=== PATIENT | female | born 1935 | race Caucasian/White ===

== ENCOUNTER 2020-05-10 13:18 | Emergency (ER) | payer MEDICARE, OTHER ==
[~2020-05-10] VITALS: Ht 152.4 cm; Wt 52.3 kg
[~2020-05-10 13:18] MED LIST: CYCL-1 PO; DICL50TA8 PO; HYDR-4353 PO; MULT-1085 PO; OMEP20TA5 PO; SERT25TA PO; TRAZ-256 PO
[2020-05-10 13:31] VITALS: BP 144/67
== END 2020-05-10 18:28 | disposition left against medical advice (07) ==
LOC: ER 13:19
DX: M54.9 Dorsalgia, unspecified (principal); Z53.21 Procedure and treatment not carried out due to patient leaving prior to being seen by health care provider

== ENCOUNTER 2021-01-11 08:27 | Inpatient (IN) | payer MEDICARE, OTHER ==
[~2021-01-11] VITALS: Ht 154.9 cm; Wt 53.7 kg
[2021-01-11] VITALS (13 sets, daily range): BP systolic 126–157; BP diastolic 58–90
[2021-01-11] MEDS ORDERED: LORazepam 0.5 MG tablet PO PRN (09:20)
[2021-01-11] MEDS ORDERED: diphenhydrAMINE 25mg capsule PO PRN (09:20)
[2021-01-11] MEDS ORDERED: nitroGLYCERIN 0.4mg SUBLingual tab SL PRN (09:20)
[2021-01-11] MEDS: normal saline 1,000 ML IV SCH ×2 (09:20→19:20)
[2021-01-11 10:16] LABS: BASOPHILS % (AUTO) 0.5 % (0-1); EOSINOPHILS # (AUTO) 0.2 X10'3 (0-0.9); EOSINOPHILS % (AUTO) 4.5 % (0-6); HEMATOCRIT 33.2 % (35.0-45.0); HEMOGLOBIN 11.3 g/dl (12.0-16.0); LYMPHOCYTES # (AUTO) 0.8 X10'3 (1.1-4.8); LYMPHOCYTES % (AUTO) 22.2 % (21-51); MEAN CORPUSCULAR HEMOGLOBIN 30.5 PG (27.0-31.0); MEAN CORPUSCULAR HGB CONC 33.9 g/dL (33.0-36.5); MEAN CORPUSCULAR VOLUME 90.1 FL (78-98); MEAN PLATELET VOLUME 6.6 FL (7.4-10.4); MONOCYTES # (AUTO) 0.4 X10'3 (0-0.9); MONOCYTES % (AUTO) 10.5 % (2-12); NEUTROPHILS # (AUTO) 2.4 X10'3 (1.8-7.7); NEUTROPHILS % (AUTO) 62.3 % (42-75); PLATELET COUNT 292 X10'3 (140-440); RED BLOOD COUNT 3.69 X10'6 (4.20-5.60); RED CELL DISTRIBUTION WIDTH 13.8 % (11.5-14.5); WHITE BLOOD COUNT 3.8 X10'3 (4.5-11.0)
[2021-01-11 10:25] LABS: ALBUMIN 3.5 G/DL (3.4-5.0); ANION GAP 6 (8-16); BLOOD UREA NITROGEN 14 MG/DL (7-18); BUN/CREATININE RATIO 15.9 (6.6-38.0); CALCIUM 8.9 MG/DL (8.5-10.1); CHLORIDE 108 MMOL/L (99-107); CREATININE 0.88 MG/DL (0.40-0.90); GLUCOSE 97 MG/DL (70-104); POTASSIUM 4.1 MMOL/L (3.5-5.1); SODIUM 142 MMOL/L (135-145); TOTAL CARBON DIOXIDE 28.3 MMOL/L (24-32); eGFR 61 ML/MIN
[2021-01-11 10:28] LABS: PARTIAL THROMBOPLASTIN TIME 27 SECONDS (22-32)
[2021-01-11] MEDS ORDERED: BUPR2TAB11 SL (11:55)
[2021-01-11] MEDS ORDERED: GLUC-95 PO (11:55)
[2021-01-11] MEDS ORDERED: CYAN250010 PO (11:55)
[2021-01-11] MEDS ORDERED: CALC-336 PO (11:55)
[2021-01-11] MEDS ORDERED: GABA300C PO (11:55)
[2021-01-11] MEDS ORDERED: FERR236T3 PO (11:55)
[2021-01-11] MEDS ORDERED: ASCO-139 PO (11:55)
[2021-01-11] MEDS ORDERED: CHOL100040 PO (11:55)
[2021-01-11] MEDS ORDERED: midazolam 1 mg/ML 2ml injection ONE ×2 (13:13→14:08)
[2021-01-11] MEDS ORDERED: fentaNYL/PF 50MCG/1 ML 2ML syringe ONE ×2 (13:13→14:08)
[2021-01-11] MEDS ORDERED: LIDOcaine 1% (10mg/ml)w/preservative injection 20ml MDV ONE (13:13)
[2021-01-11] MEDS ORDERED: iohexol 350MG/ML 100ml bottle IV ONE (13:13)
[2021-01-11] MEDS ORDERED: iohexol 350 MG/ML 50ML vial IV ONE ×2 (13:13→14:29)
[2021-01-11] MEDS ORDERED: HYDROcodone/acetaminophen 5mg/325mg tablet PO PRN ×2 (15:25→16:10)
[2021-01-11] MEDS ORDERED: HYDROcodone/acetaminophen 10/325mg tab PO PRN (15:25)
[2021-01-11] MEDS ORDERED: ondansetron/PF 4mg/2ml inj IV PRN ×2 (15:25→16:10)
[2021-01-11] MEDS ORDERED: OXAZEpam 15mg capsule PO PRN (15:25)
[2021-01-11] MEDS ORDERED: proCHLORperazine 10 MG/2 ml inj IV PRN (15:25)
[2021-01-11] MEDS ORDERED: magnesium hydroxide 30ml (MOM) UD suspension PO PRN (16:10)
[2021-01-11] MEDS ORDERED: magnesium 2GM in 50ml NS 50 ML IV PRN (16:10)
[2021-01-11] MEDS ORDERED: magnesium Cl slow-release 64mg tablet PO PRN (16:10)
[2021-01-11] MEDS ORDERED: potassium Cl 40MEQ/1/2NS 520ml 520 ML IV PRN ×2 (16:10)
[2021-01-11] MEDS ORDERED: magnesium 4gm in 100ml NS 100 ML IV PRN (16:10)
[2021-01-11] MEDS ORDERED: morphine 2 MG/ML inj. syringe IV PRN ×2 (16:10)
[2021-01-11] MEDS ORDERED: mag hydrox/Alum hydrox/simeth 30ml oral suspension PO PRN (16:10)
[2021-01-11] MEDS ORDERED: acetaminophen 325mg tablet PO PRN ×2 (16:10)
[2021-01-11] MEDS ORDERED: potassium Cl 20 mEq SR tablet PO PRN ×2 (16:10)
[2021-01-11] MEDS ORDERED: cyclobenzaprine 10mg tablet PO PRN (16:20)
--- NOTE | 2021-01-11 16:35 | NUR ---
Problems reprioritized. Patient report given, questions answered & plan of care reviewed with ELIEL Hennessy, pt will be going to room #0689F.
--- NOTE | 2021-01-11 17:00 | NUR ---
pt is in room #3014B, VSS, pt is in stable condition and in no distress at this time, pt's RNPierre at pt's bedside.
[2021-01-11] MEDS: HYDROcodone/acetaminophen 10/325mg tab PO PRN (18:15)
[2021-01-11] MEDS: docusate sod 100mg capsule PO SCH (19:29)
[2021-01-11] MEDS: pantoprazole 40mg Tablet.DR PO SCH (19:29)
[2021-01-11] MEDS: heparin, porcine 5000 units/ml vial SQ SCH (19:30)
[2021-01-11] MEDS: normal saline 1000ml 1,000 ML IV SCH (19:30)
[2021-01-11] MEDS: HYDROmorphone inj. 0.5 MG/0.5 ML DISP.SYRIN IV PRN (19:30)
[2021-01-11] MEDS: K and/or MAG REPLACEMENT MC SCH (19:46)
[2021-01-11] MEDS ORDERED: temazepam 15mg capsule PO PRN (21:00)
[2021-01-11] MEDS: traZODone 50mg tablet PO SCH (22:25)
[2021-01-12] VITALS (14 sets, daily range): BP systolic 120–151; BP diastolic 61–81
[2021-01-12] MEDS: normal saline 1,000 ML IV SCH ×2 (05:20→14:13)
[2021-01-12] MEDS: HYDROmorphone inj. 0.5 MG/0.5 ML DISP.SYRIN IV PRN ×2 (05:27→10:37)
[2021-01-12 06:14] LABS: BASOPHILS % (AUTO) 0.5 % (0-1); EOSINOPHILS # (AUTO) 0.2 X10'3 (0-0.9); EOSINOPHILS % (AUTO) 4.5 % (0-6); HEMATOCRIT 30.3 % (35.0-45.0); HEMOGLOBIN 10.3 g/dl (12.0-16.0); LYMPHOCYTES # (AUTO) 1.2 X10'3 (1.1-4.8); LYMPHOCYTES % (AUTO) 24.8 % (21-51); MEAN CORPUSCULAR HEMOGLOBIN 30.9 PG (27.0-31.0); MEAN CORPUSCULAR VOLUME 90.9 FL (78-98); MEAN PLATELET VOLUME 7.2 FL (7.4-10.4); MONOCYTES # (AUTO) 0.4 X10'3 (0-0.9); MONOCYTES % (AUTO) 8.7 % (2-12); NEUTROPHILS # (AUTO) 3.1 X10'3 (1.8-7.7); NEUTROPHILS % (AUTO) 61.5 % (42-75); PLATELET COUNT 249 X10'3 (140-440); RED BLOOD COUNT 3.33 X10'6 (4.20-5.60); RED CELL DISTRIBUTION WIDTH 14.1 % (11.5-14.5)
--- NOTE | 2021-01-12 06:22 | NUR ---
Problems reprioritized. Patient report given, questions answered & plan of care reviewed with ELIEL Hammer.
[2021-01-12] MEDS: normal saline 1000ml 1,000 ML IV SCH ×2 (06:28→20:46)
[2021-01-12 06:32] LABS: ALANINE AMINOTRANSFERASE 13 U/L (12-78); ALBUMIN 2.8 G/DL (3.4-5.0); ALBUMIN/GLOBULIN RATIO 0.9 (1.1-1.5); ALKALINE PHOSPHATASE 67 IU/L (46-116); ANION GAP 12 (8-16); ASPARTATE AMINO TRANSFERASE 16 U/L (10-37); BILIRUBIN,TOTAL 0.2 MG/DL (0.1-1.0); BLOOD UREA NITROGEN 14 MG/DL (7-18); BUN/CREATININE RATIO 16.3 (6.6-38.0); CALCIUM 8.2 MG/DL (8.5-10.1); CHLORIDE 108 MMOL/L (99-107); CREATININE 0.86 MG/DL (0.40-0.90); GLUCOSE 94 MG/DL (70-104); MAGNESIUM 2.2 MG/DL (1.5-2.4); POTASSIUM 3.8 MMOL/L (3.5-5.1); SODIUM 145 MMOL/L (135-145); TOTAL CARBON DIOXIDE 24.8 MMOL/L (24-32); eGFR 63 ML/MIN
[2021-01-12] MEDS: gabapentin 300mg capsule PO SCH (07:35)
[2021-01-12] MEDS: sertraline 50mg tablet PO SCH (07:36)
[2021-01-12] MEDS: pantoprazole 40mg Tablet.DR PO SCH ×2 (07:36→20:27)
[2021-01-12] MEDS: heparin, porcine 5000 units/ml vial SQ SCH ×2 (07:40→20:27)
[2021-01-12] MEDS: docusate sod 100mg capsule PO SCH ×2 (07:40→20:28)
[2021-01-12] MEDS: K and/or MAG REPLACEMENT MC SCH ×2 (08:00→20:00)
[2021-01-12] MEDS ORDERED: midazolam 1 mg/ML 2ml injection ONE ×2 (08:41→09:46)
[2021-01-12] MEDS ORDERED: proCHLORperazine 10 MG/2 ml inj ONE (08:41)
[2021-01-12] MEDS ORDERED: fentaNYL/PF 50MCG/1 ML 2ML syringe ONE ×2 (08:41→09:39)
[2021-01-12] MEDS ORDERED: vancomycin 1,000mg inj ONE (08:42)
[2021-01-12] MEDS ORDERED: LIDOcaine 1% w/EPI 1:100,000 30ml vial (MDV) ONE (08:42)
[2021-01-12] MEDS ORDERED: ceFAZolin/D5W- 1GM premix 50 ML IV ONE (09:00)
[2021-01-12] MEDS ORDERED: ceFAZolin 1000mg inj IR ONE (09:00)
[2021-01-12] MEDS: HYDROcodone/acetaminophen 10/325mg tab PO PRN (17:16)
[2021-01-12] MEDS: traZODone 50mg tablet PO SCH (20:27)
[2021-01-13] MEDS: normal saline 1,000 ML IV SCH (00:26)
[2021-01-13 02:00] VITALS: BP 161/84
--- NOTE | 2021-01-13 06:27 | NUR ---
Problems reprioritized. Patient report given, questions answered & plan of care reviewed with Davis JULIAN .
[2021-01-13 06:38] LABS: BASOPHILS % (AUTO) 0.2 % (0-1); EOSINOPHILS # (AUTO) 0.1 X10'3 (0-0.9); EOSINOPHILS % (AUTO) 0.9 % (0-6); HEMOGLOBIN 10.8 g/dl (12.0-16.0); LYMPHOCYTES # (AUTO) 0.8 X10'3 (1.1-4.8); LYMPHOCYTES % (AUTO) 12.1 % (21-51); MEAN CORPUSCULAR HEMOGLOBIN 30.5 PG (27.0-31.0); MEAN CORPUSCULAR HGB CONC 33.7 g/dL (33.0-36.5); MEAN CORPUSCULAR VOLUME 90.2 FL (78-98); MONOCYTES # (AUTO) 0.5 X10'3 (0-0.9); MONOCYTES % (AUTO) 7.6 % (2-12); NEUTROPHILS # (AUTO) 5.4 X10'3 (1.8-7.7); NEUTROPHILS % (AUTO) 79.2 % (42-75); PLATELET COUNT 248 X10'3 (140-440); RED BLOOD COUNT 3.55 X10'6 (4.20-5.60); RED CELL DISTRIBUTION WIDTH 13.8 % (11.5-14.5); WHITE BLOOD COUNT 6.8 X10'3 (4.5-11.0)
[2021-01-13 06:52] LABS: ALANINE AMINOTRANSFERASE 20 U/L (12-78); ALKALINE PHOSPHATASE 85 IU/L (46-116); ANION GAP 5 (8-16); ASPARTATE AMINO TRANSFERASE 21 U/L (10-37); BILIRUBIN,TOTAL 0.3 MG/DL (0.1-1.0); BLOOD UREA NITROGEN 8 MG/DL (7-18); BUN/CREATININE RATIO 11.4 (6.6-38.0); CALCIUM 8.4 MG/DL (8.5-10.1); CHLORIDE 108 MMOL/L (99-107); GLUCOSE 113 MG/DL (70-104); POTASSIUM 3.4 MMOL/L (3.5-5.1); SODIUM 138 MMOL/L (135-145); TOTAL CARBON DIOXIDE 24.7 MMOL/L (24-32); TOTAL PROTEIN 6.1 G/DL (6.4-8.2); eGFR 80 ML/MIN
[2021-01-13 07:00] VITALS: BP 145/87
[2021-01-13] MEDS ORDERED: ceFAZolin/D5W- 1GM premix 50 ML IV SCH (08:00)
[2021-01-13] MEDS: K and/or MAG REPLACEMENT MC SCH (08:00)
[2021-01-13] MEDS: docusate sod 100mg capsule PO SCH (09:11)
[2021-01-13] MEDS: pantoprazole 40mg Tablet.DR PO SCH (09:12)
[2021-01-13] MEDS: sertraline 50mg tablet PO SCH (09:12)
[2021-01-13] MEDS: gabapentin 300mg capsule PO SCH (09:12)
[2021-01-13] MEDS: heparin, porcine 5000 units/ml vial SQ SCH (09:13)
[2021-01-13] MEDS: HYDROcodone/acetaminophen 10/325mg tab PO PRN (11:38)
== END 2021-01-13 12:41 | disposition home or self-care (01) | DRG 243 ==
LOC: SSTAY O 08:27 → PCU 3S 15:00 → UNDOADMIN 15:00 → PCU 3S 16:10
PROVIDERS: ADMIT Internal Medicine Cardiovascular Disease; ATTEND Internal Medicine Cardiovascular Disease
PROC: 4A023N7 Measurement of Cardiac Sampling and Pressure, Left Heart, Percutaneous Approach (ICD-10-PCS; 2021-01-11)
PROC: B2111ZZ Fluoroscopy of Multiple Coronary Arteries using Low Osmolar Contrast (ICD-10-PCS; 2021-01-11)
PROC: B2151ZZ Fluoroscopy of Left Heart using Low Osmolar Contrast (ICD-10-PCS; 2021-01-11)
PROC: B3101ZZ Fluoroscopy of Thoracic Aorta using Low Osmolar Contrast (ICD-10-PCS; 2021-01-11)
PROC: 0JH606Z Insertion of Pacemaker, Dual Chamber into Chest Subcutaneous Tissue and Fascia, Open Approach (ICD-10-PCS; principal; 2021-01-12)
PROC: 02HK3JZ Insertion of Pacemaker Lead into Right Ventricle, Percutaneous Approach (ICD-10-PCS; 2021-01-12)
PROC: 02H63JZ Insertion of Pacemaker Lead into Right Atrium, Percutaneous Approach (ICD-10-PCS; 2021-01-12)
DX: I49.5 Sick sinus syndrome (principal); I44.2 Atrioventricular block, complete; G89.4 Chronic pain syndrome; M25.551 Pain in right hip; R94.39 Abnormal result of other cardiovascular function study; I20.9 Angina pectoris, unspecified; Z66 Do not resuscitate; F32.A Depression, unspecified; G62.9 Polyneuropathy, unspecified; J44.9 Chronic obstructive pulmonary disease, unspecified; Z89.512 Acquired absence of left leg below knee; Z80.0 Family history of malignant neoplasm of digestive organs; Z79.899 Other long term (current) drug therapy; I95.9 Hypotension, unspecified; S80.912A Unspecified superficial injury of left knee, initial encounter; X58.XXXA Exposure to other specified factors, initial encounter; Y93.89 Activity, other specified; Y92.89 Other specified places as the place of occurrence of the external cause; Y99.8 Other external cause status
CPT/HCPCS: 33208; 33210; 36415; 71045; 71046; 80048; 80053; 83605; 83735; 85025; 85610; 85730; 87040; 93005; 93458; 93567; 97116; 97161; 99152; 99153; A4565; A4620; A6258; A6449; C1760; C1769; C1785; C1898; G0378; J0690; J0780; J1170; J1644; J2001; J2250; J3010; J3370; J7030; Q9967

== ENCOUNTER 2021-03-19 08:51 | Day surgery (SDC) | payer MEDICARE, OTHER ==
[~2021-03-19] VITALS: Ht 152.4 cm; Wt 53.7 kg
[~2021-03-19 08:51] MED LIST changes: +ASCO-139 PO; +BUPR2TAB11 SL; +CALC-336 PO; +CHOL100040 PO; +CYAN250010 PO; -DICL50TA8 PO; +FERR236T3 PO; +GABA300C PO; +GLUC-95 PO
[2021-03-19] MEDS ORDERED: normal saline 1000ml 1,000 ML IV SCH (09:15)
[2021-03-19 10:17] LABS: BASOPHILS % (AUTO) 0.7 % (0-1); EOSINOPHILS # (AUTO) 0.2 X10'3 (0-0.9); EOSINOPHILS % (AUTO) 3.8 % (0-6); HEMATOCRIT 33.5 % (35.0-45.0); HEMOGLOBIN 11.3 g/dl (12.0-16.0); LYMPHOCYTES % (AUTO) 24.5 % (21-51); MEAN CORPUSCULAR HGB CONC 33.7 g/dL (33.0-36.5); MEAN PLATELET VOLUME 7.1 FL (7.4-10.4); MONOCYTES # (AUTO) 0.4 X10'3 (0-0.9); MONOCYTES % (AUTO) 9.5 % (2-12); NEUTROPHILS # (AUTO) 2.5 X10'3 (1.8-7.7); NEUTROPHILS % (AUTO) 61.5 % (42-75); PLATELET COUNT 290 X10'3 (140-440); RED BLOOD COUNT 3.77 X10'6 (4.20-5.60); RED CELL DISTRIBUTION WIDTH 14.2 % (11.5-14.5)
[2021-03-19] MEDS ORDERED: LIDOcaine 1% 30ml preserv. free vial SQ STA (10:58)
--- NOTE | 2021-03-19 13:35 | NUR ---
Patient stable for discharge per Dr. Cruz. Patient awake and alert. Pt had 2 CT scans done, and US done to right buttock and upper leg. No interventions needed at this time. Instructed patient to follow up with Primary regarding pain. Patient verbalized understanding. Patient transported off unit via wheel chair to private vehicle.
== END 2021-03-19 13:35 | disposition home or self-care (01) ==
LOC: SSTAY O 08:51
PROVIDERS: ATTEND Radiology Diagnostic Radiology
DX: S30.0XXA Contusion of lower back and pelvis, initial encounter (principal); Z53.8 Procedure and treatment not carried out for other reasons; G51.0 Bell's palsy; E78.5 Hyperlipidemia, unspecified; K21.9 Gastro-esophageal reflux disease without esophagitis; F32.9 Major depressive disorder, single episode, unspecified; M19.90 Unspecified osteoarthritis, unspecified site; D64.9 Anemia, unspecified; M47.9 Spondylosis, unspecified; Z98.890 Other specified postprocedural states; Z95.810 Presence of automatic (implantable) cardiac defibrillator; Z79.899 Other long term (current) drug therapy; Z80.0 Family history of malignant neoplasm of digestive organs; X58.XXXA Exposure to other specified factors, initial encounter; Y93.89 Activity, other specified; Y92.89 Other specified places as the place of occurrence of the external cause; Y99.8 Other external cause status
CPT/HCPCS: 36415; 72192; 74150; 74176; 76857; 85025

== ENCOUNTER 2023-06-10 08:49 | Emergency (ER) | payer MEDICARE ==
[~2023-06-10] VITALS: Ht 152.4 cm; Wt 54.5 kg
[~2023-06-10 08:49] MED LIST changes: +ASPI81TA53 PO; +ATOR20TA66 PO; -BUPR2TAB11 SL; +CARV6.253 PO; +CLOP75TA34 PO; +DULO20CA18 PO; +FURO20TA4 PO; +LISI5TAB22 PO; +OMEP20TA43 PO; -OMEP20TA5 PO
[2023-06-10 09:33] VITALS: TEMP 99.5
[2023-06-10] MEDS: aspirin 81mg tab.chew PO ONE (10:15)
[2023-06-10 10:25] LABS: BASOPHILS % (AUTO) 0.2 % (0-1); EOSINOPHILS # (AUTO) 0.3 X10'3 (0-0.9); EOSINOPHILS % (AUTO) 2.4 % (0-6); HEMATOCRIT 36.4 % (35.0-45.0); HEMOGLOBIN 12.1 g/dl (12.0-16.0); LYMPHOCYTES # (AUTO) 0.9 X10'3 (1.1-4.8); MEAN CORPUSCULAR HEMOGLOBIN 30.5 PG (27.0-31.0); MEAN CORPUSCULAR HGB CONC 33.2 g/dL (33.0-36.5); MEAN CORPUSCULAR VOLUME 91.9 FL (78-98); MEAN PLATELET VOLUME 7.1 FL (7.4-10.4); MONOCYTES % (AUTO) 9.4 % (2-12); NEUTROPHILS # (AUTO) 8.3 X10'3 (1.8-7.7); PLATELET COUNT 254 X10'3 (140-440); RED BLOOD COUNT 3.97 X10'6 (4.20-5.60); RED CELL DISTRIBUTION WIDTH 14.7 % (11.5-14.5); WHITE BLOOD COUNT 10.5 X10'3 (4.5-11.0)
[2023-06-10 10:33] LABS: ALANINE AMINOTRANSFERASE 22 U/L (12-78); ALBUMIN 3.1 G/DL (3.4-5.0); ALBUMIN/GLOBULIN RATIO 0.8 (1.1-1.5); ALKALINE PHOSPHATASE 61 IU/L (46-116); ANION GAP 4 (8-16); ASPARTATE AMINO TRANSFERASE 16 U/L (10-37); BILIRUBIN,TOTAL 0.4 MG/DL (0.1-1.0); BLOOD UREA NITROGEN 14 MG/DL (7-18); BUN/CREATININE RATIO 14.9 (10.0-20.0); CHLORIDE 104 MMOL/L (99-107); CREATININE 0.94 MG/DL (0.40-0.90); GLUCOSE 109 MG/DL (70-104); POTASSIUM 4.5 MMOL/L (3.5-5.1); SODIUM 139 MMOL/L (135-145); TOTAL CARBON DIOXIDE 30.6 MMOL/L (24-32); TOTAL PROTEIN 6.8 G/DL (6.4-8.2); eCRCL 30 ML/MIN; eGFR 56 ML/MIN
[2023-06-10 10:42] LABS: MAGNESIUM 2.2 MG/DL (1.5-2.4); PRO BRAIN NATRIURETIC PEPTIDE 300 PG/ML (0-450)
[2023-06-10 12:46] VITALS: BP 138/80; PULSE 99; RESP 17; O2SAT 96
== END 2023-06-10 12:48 | disposition home or self-care (01) ==
LOC: ER 08:49
DX: R53.1 Weakness (principal); R53.83 Other fatigue; R68.2 Dry mouth, unspecified; R68.83 Chills (without fever); R63.0 Anorexia; R11.0 Nausea; I10 Essential (primary) hypertension; K21.9 Gastro-esophageal reflux disease without esophagitis; Z90.710 Acquired absence of both cervix and uterus; Z79.899 Other long term (current) drug therapy; Z95.0 Presence of cardiac pacemaker
CPT/HCPCS: 36415; 71045; 80053; 83735; 83880; 84484; 85025; 93005; 99285

== ENCOUNTER 2023-06-12 08:59 | Emergency (ER) | payer MEDICARE ==
[~2023-06-12] VITALS: Ht 152.4 cm; Wt 55.0 kg
[2023-06-12 09:06] VITALS: TEMP 98
[2023-06-12] MEDS: normal saline 500ml IV soln 500 ML IV SCH (10:24)
[2023-06-12 10:40] LABS: BASOPHILS % (AUTO) 0.2 % (0-1); EOSINOPHILS # (AUTO) 0.3 X10'3 (0-0.9); EOSINOPHILS % (AUTO) 3.6 % (0-6); HEMATOCRIT 32.7 % (35.0-45.0); HEMOGLOBIN 10.6 g/dl (12.0-16.0); LYMPHOCYTES % (AUTO) 11.7 % (21-51); MEAN CORPUSCULAR HEMOGLOBIN 29.7 PG (27.0-31.0); MEAN CORPUSCULAR HGB CONC 32.4 g/dL (33.0-36.5); MEAN CORPUSCULAR VOLUME 91.5 FL (78-98); MEAN PLATELET VOLUME 7.1 FL (7.4-10.4); MONOCYTES # (AUTO) 1.1 X10'3 (0-0.9); MONOCYTES % (AUTO) 12.9 % (2-12); NEUTROPHILS # (AUTO) 5.9 X10'3 (1.8-7.7); NEUTROPHILS % (AUTO) 71.6 % (42-75); PLATELET COUNT 264 X10'3 (140-440); RED BLOOD COUNT 3.57 X10'6 (4.20-5.60); RED CELL DISTRIBUTION WIDTH 14.4 % (11.5-14.5); WHITE BLOOD COUNT 8.3 X10'3 (4.5-11.0)
[2023-06-12 10:50] LABS: ALANINE AMINOTRANSFERASE 20 U/L (12-78); ALBUMIN 2.5 G/DL (3.4-5.0); ALBUMIN/GLOBULIN RATIO 0.7 (1.1-1.5); ALKALINE PHOSPHATASE 64 IU/L (46-116); ANION GAP 6 (8-16); ASPARTATE AMINO TRANSFERASE 19 U/L (10-37); BILIRUBIN,TOTAL 0.3 MG/DL (0.1-1.0); BLOOD UREA NITROGEN 19 MG/DL (7-18); BUN/CREATININE RATIO 16.8 (10.0-20.0); CALCIUM 8.3 MG/DL (8.5-10.1); CHLORIDE 102 MMOL/L (99-107); CREATININE 1.13 MG/DL (0.40-0.90); GLUCOSE 125 MG/DL (70-104); POTASSIUM 4.4 MMOL/L (3.5-5.1); SODIUM 136 MMOL/L (135-145); TOTAL CARBON DIOXIDE 27.7 MMOL/L (24-32); TOTAL PROTEIN 6.3 G/DL (6.4-8.2); eCRCL 25 ML/MIN; eGFR 46 ML/MIN
[2023-06-12 10:57] LABS: BILIRUBIN,DIRECT 0.1 MG/DL (0-0.3); MAGNESIUM 2.1 MG/DL (1.5-2.4); PRO BRAIN NATRIURETIC PEPTIDE 385 PG/ML (0-450)
[2023-06-12] MEDS: oxyCODONE IR 5mg (immed. release) tablet PO ONE (12:08)
[2023-06-12] MEDS: acetaminophen 1,000mg/100ml IV 100 ML IV ONE (12:09)
[2023-06-12 15:06] LABS: BILIRUBIN,URINE NEGATIVE (Neg); CLARITY,URINE CLEAR (Clear); COLOR,URINE YELLOW (Yellow); GLUCOSE, URINE NEGATIVE (Neg); KETONES,URINE NEGATIVE (Neg); LEUKOCYTE ESTERASE ,URINE NEGATIVE (Neg); NITRITES, URINE NEGATIVE (Neg); OCCULT BLOOD,URINE MODERATE (Neg); PH,URINE 6.5 (4.8-8.0); PROTEIN,URINE NEGATIVE (Neg)
[2023-06-12 15:08] LABS: UA COLLECTION TYPE NON-SPECIFIED
[2023-06-12 15:11] LABS: SQUAMOUS EPITHELIAL CELL,UR MODERATE /LPF (FEW)
[2023-06-12 15:14] LABS: RBC,URINE 50-100 /HPF (0-2)
[2023-06-12 15:15] LABS: BACTERIA,URINE 1+ /HPF (Neg); CAL OXALATE CRYSTALS FEW /HPF (NEGATIVE); TRANSITIONAL EPI CELLS,URINE FEW /HPF; WBC,URINE 0-4 /HPF (0-4)
[2023-06-12 16:00] VITALS: BP 114/67; PULSE 78; RESP 16; O2SAT 95
== END 2023-06-12 16:37 | disposition home or self-care (01) ==
LOC: ER 08:59
DX: E86.0 Dehydration (principal); R53.1 Weakness; I10 Essential (primary) hypertension; K21.9 Gastro-esophageal reflux disease without esophagitis; Z90.710 Acquired absence of both cervix and uterus; Z95.0 Presence of cardiac pacemaker
CPT/HCPCS: 36415; 71045; 80048; 80076; 81001; 83735; 83880; 84484; 85025; 93005; 96365; 99285; J0131; J7040; 96361